=== PATIENT | female | born 1950 | race Caucasian/White ===

== ENCOUNTER 2025-01-05 14:01 | Emergency (ER) | payer OTHER, MEDICARE ==
--- OUTSIDE RECORDS SUMMARY | 2025-01-05 14:04 | XMS REPORT | Continuity of Care Document ---
Author Name Unknown Address [address] [facility] [place] [address] Organization [facility] [place] Address [address] [facility] [place] [address] Care Team Providers Care Coppersmith Helper Name Role Phone Hanny RIVAS, Ben Batista Primary Care Physician Yvette Thomas Attending Clinician Unavailable Payers Payer Name Policy Type Policy Number Effective Date Expira tion Date Source MEDICARE 1 [id number] [facility] [place] [facility] AARP Medicare Supplemental 53 [id number] [facility] Problems Condition Name Condition Details Condition Category Status Onset Date Resolution Date Last Treatment Date Treating Clinician Comments Source Essential hypertensi on Essential (primary) hypertensi on Problem [facility] Postmenopa usal osteoporos is Postmenopa usal osteoporos is Problem [facility] [id number] Moderate major depression Problem [facility] Gastroesop hageal reflux disease GERD without esophagiti s Problem [facility] Generalize d anxiety disorder JAYLEN (generaliz ed anxiety disorder) Problem [facility] [id number] Rheumatoid arthritis, involving unspecifie d site, unspecifie d whether rheumatoid factor present Problem [facility] Allergic rhinitis Non-season al allergic rhinitis, unspecifie d trigger Problem [facility] Herpes simplex otitis externa Recurrent cold sores Problem [facility] [id number] Mixed hyperlipid emia Problem [facility] [id number] Seropositi ve rheumatoid arthritis Problem [facility] Social History Social Habit Start Date Stop Date Quantity Comments Source Sex Assigned At [facility] History of Tobacco Use [facility] Smoking Status Start Date Stop Date Source Never Smoker [facility] Medications Ordered Medication Name Filled Medication Name Start Date Stop Date Current Medication? Ordering Clinician Indication Dosage Frequency Signature (SIG) Comments Components Source valacyclovi r 1 gram tablet 6- 00:00: 00 Yes 1gram Esteban Kebede Lisinopril 10 MG Lisinopril 10 MG -20 00:00: 00 No 1{table t} QD Lisinopril 10 MG bupropion HCl XL 300 mg 24 hr tablet, extended release - 00:00: 00 Yes mg Esteban Kebede lisinopril 10 mg tablet -19 00:00: 00 Yes mg Esteban Kebede buspirone 10 mg tablet 5-15 00:00: 00 Yes mg Esteban Kebede rosuvastati n 5 mg tablet 1-14 00:00: 00 Yes mg Esteban Kebede rifAMPin 300 MG rifAMPin 300 MG 2023-04 1-06 00:00: 00 No 2{capsu les} QD rifAMPin 300 MG valACYclovi r HCl 1 GM valACYclovi r HCl 1 GM 11-03 00:00: 00 No 1{table t} QD valACYclov ir HCl 1 GM Rosuvastati n Calcium 5 MG Rosuvastati n Calcium 5 MG -25 00:00: 00 No 1{table t} QD Rosuvastat in Calcium 5 MG Actemra 200 MG/10ML Actemra 200 MG/10ML No Actemra 200 MG/10ML ZyrTEC Allergy 10 MG ZyrTEC Allergy 10 MG No 1{table t} QD ZyrTEC Allergy 10 MG buPROPion HCl ER (XL) 300 MG buPROPion HCl ER (XL) 300 MG No QD buPROPion HCl ER (XL) 300 MG busPIRone HCl 10 MG busPIRone HCl 10 MG No 1{table t} BID busPIRone HCl 10 MG Pepcid 20 MG Pepcid 20 MG No 1{table t_at_be dtime_a s_neede d} QD Pepcid 20 MG Rosuvastati n Calcium 5 MG Rosuvastati n Calcium 5 MG No Rosuvastat in Calcium 5 MG ZyrTEC 10 MG ZyrTEC 10 MG No 1{table t} QD ZyrTEC 10 MG buPROPion HCl ER (XL) 300 MG buPROPion HCl ER (XL) 300 MG No buPROPion HCl ER (XL) 300 MG busPIRone HCl 10 MG busPIRone HCl 10 MG No busPIRone HCl 10 MG Pepcid 20 MG Pepcid 20 MG No 1{table t_at_be dtime_a s_neede d} QD Pepcid 20 MG valACYclovi r HCl 1 GM valACYclovi r HCl 1 GM No valACYclov ir HCl 1 GM Immunizations Ordered Immunization Name Filled Immunization Name Date Status Comments Source Fluad (IIV) - SDS - 0.5mL Fluad (IIV) - SDS - 0.5mL Unknown Completed [facility] Vital Signs Vital Name Observation Time Observation Value Comments S ource height 2024-09-26 11:30:00 66.5 [in_i] [facility] weight 2024-09-26 11:30:00 172.4 [lb_av] [facility] temperature 2024-09-26 11:30:00 97.7 [degF] Com [facility] bmi 2024-09-26 11:30:00 27.41 kg/m2 [facility] oximetry 2024-09-26 11:30:00 98 % [facility] blood pressure systolic 2024-09-26 11:30:00 117 mm[Hg] [facility] blood pressure diastolic 2024-09-26 11:30:00 68 mm[Hg] [facility] height 2024-08-29 10:45:00 66.5 [in_i] [facility] weight 2024-08-29 10:45:00 173.8 [lb_av] [facility] temperature 2024-08-29 10:45:00 98.2 [degF] Com [facility] bmi 2024-08-29 10:45:00 27.63 kg/m2 [facility] oximetry 2024-08-29 10:45:00 96 % [facility] blood pressure systolic 2024-08-29 10:45:00 152 mm[Hg] [facility] blood pressure diastolic 2024-08-29 10:45:00 84 mm[Hg] Common [facility] height 2024-06-09 10:00:00 66.5 [in_i] [facility] weight 2024-06-09 10:00:00 175 [lb_av] [facility] temperature 2024-06-09 10:00:00 97.4 [degF] Com [facility] bmi 2024-06-09 10:00:00 27.82 kg/m2 [facility] oximetry 2024-06-09 10:00:00 97 % [facility] respiratory rate 2024-06-09 10:00:00 16 /min Common [facility] blood pressure systolic 2024-06-09 10:00:00 134 mm[Hg] [facility] blood pressure diastolic 2024-06-09 10:00:00 72 mm[Hg] Common [facility] height 2024-03-21 10:20:00 66.5 [in_i] [facility] weight 2024-03-21 10:20:00 163 [lb_av] [facility] on [facility] bmi 2024-03-21 10:20:00 25.91 kg/m2 [facility] height 2024-02-07 11:00:00 66.5 [in_i] [facility] weight 2024-02-07 11:00:00 161 [lb_av] [facility] temperature 2024-02-07 11:00:00 97.2 [degF] Com [facility] bmi 2024-02-07 11:00:00 25.59 kg/m2 [facility] oximetry 2024-02-07 11:00:00 97 % [facility] respiratory rate 2024-02-07 11:00:00 16 /min Common [facility] blood pressure systolic 2024-02-07 11:00:00 138 mm[Hg] Common [facility] blood pressure diastolic 2024-02-07 11:00:00 82 mm[Hg] Common [facility] height 2024-02-07 11:00:00 66.5 [in_i] [facility] weight 2024-02-07 11:00:00 161 [lb_av] [facility] temperature 2024-02-07 11:00:00 97.2 [degF] Com [facility] bmi 2024-02-07 11:00:00 25.59 kg/m2 [facility] oximetry 2024-02-07 11:00:00 97 % [facility] respiratory rate 2024-02-07 11:00:00 16 /min Common [facility] blood pressure systolic 2024-02-07 11:00:00 138 mm[Hg] [facility] blood pressure diastolic 2024-02-07 11:00:00 82 mm[Hg] Common [facility] height 2023-11-04 08:20:00 66.5 [in_i] [facility] weight 2023-11-04 08:20:00 162.2 [lb_av] [facility] temperature 2023-11-04 08:20:00 97.2 [degF] Com [facility] bmi 2023-11-04 08:20:00 25.78 kg/m2 [facility] oximetry 2023-11-04 08:20:00 98 % [facility] respiratory rate 2023-11-04 08:20:00 16 /min Common [facility] blood pressure systolic 2023-11-04 08:20:00 132 mm[Hg] [facility] blood pressure diastolic 2023-11-04 08:20:00 78 mm[Hg] Common [facility] height 2023-11-04 08:20:00 66.5 [in_i] [facility] weight 2023-11-04 08:20:00 162.2 [lb_av] [facility] temperature 2023-11-04 08:20:00 97.2 [degF] Com mon [facility] bmi 2023-11-04 08:20:00 25.78 kg/m2 [facility] oximetry 2023-11-04 08:20:00 98 % [facility] respiratory rate 2023-11-04 08:20:00 16 /min Common [facility] blood pressure systolic 2023-11-04 08:20:00 132 mm[Hg] Common [facility] blood pressure diastolic 2023-11-04 08:20:00 78 mm[Hg] Common [facility] height 2023-11-04 08:20:00 66.5 [in_i] [facility] weight 2023-11-04 08:20:00 162.2 [lb_av] [facility] temperature 2023-11-04 08:20:00 97.2 [degF] Com mon [facility] bmi 2023-11-04 08:20:00 25.78 kg/m2 Comm [facility] oximetry 2023-11-04 08:20:00 98 % [facility] respiratory rate 2023-11-04 08:20:00 16 /min Common [facility] blood pressure systolic 2023-11-04 08:20:00 132 mm[Hg] [facility] blood pressure diastolic 2023-11-04 08:20:00 78 mm[Hg] [facility] height 2023-10-07 10:20:00 66.5 [in_i] [facility] weight 2023-10-07 10:20:00 164.2 [lb_av] [facility] temperature 2023-10-07 10:20:00 97.2 [degF] Com [facility] bmi 2023-10-07 10:20:00 26.1 kg/m2 [facility] oximetry 2023-10-07 10:20:00 97 % [facility] respiratory rate 2023-10-07 10:20:00 16 /min [facility] blood pressure systolic 2023-10-07 10:20:00 144 mm[Hg] Common [facility] blood pressure diastolic 2023-10-07 10:20:00 80 mm[Hg] [facility] Respiratory Rate 2024-09-11 14:58:00 Esteban Kebede BP Systolic 2024-09-11 14:58:00 144 mm[Hg] Dhruv Kebede BP Diastolic 2024-09-11 14:58:00 88 mm[Hg] Luiz Kebede Weight Measured 2024-09-11 14:58:00 173.80 pounds Esteban Kebede Height Measured 2024-09-11 14:58:00 67.00 inches Esteban Kebede Body Temperature 2024-09-11 14:58:00 98.10 degrees Esteban Kebede Heart Rate 2024-09-11 14:58:00 70.00 /min Kacy Kebede Encounters Start Date/Time End Date/Time Encounter Type Admission Type Attending [facility] Care Facility Care Department Encounter ID Source 2024-05-10 00:14:00 Outpatient Yvette Thomas CLS CLS [id number] Bethany millard 2024-02-03 09:27:01 Outpatient Yvette Thomas STLMLC STLMLC [id number] [facility] 2023-10-07 10:04:01 Outpatient Yvette Thomas STLMLC STLMLC [id number] [facility] 2024-09-26 00:00:00 2024-09-26 00:00:00 OFFICE VISIT ESTAB PT LEVEL 3 STLMLC STLMLC [id number] [facility] 2024-09-11 14:51:58 2024-09-11 14:51:58 Outpatient SFA SFA [id number] Esteban Kebede 2024-09-11 00:00:00 2024-09-11 00:00:00 Outpatient Visit SFA [id number] Esteban Kebede 2024-08-29 00:00:00 2024-08-29 00:00:00 OFFICE VISIT ESTAB PT LEVEL 3 STLMLC STLMLC [id number] [facility] 2024-06-22 00:00:00 2024-06-22 00:00:00 Office Visit- Est Pt.- Level 4 CLS CLS [id number] Bethany millard 2024-06-16 00:00:00 2024-06-16 00:00:00 (TEL) CLS CLS [id number] Bethany millard 2024-06-09 00:00:00 2024-06-09 00:00:00 OFFICE VISIT ESTAB PT LEVEL 4 STLMLC STLMLC [id number] [facility] 2024-03-21 00:00:00 2024-03-21 00:00:00 OFFICE VISIT ESTAB PT LEVEL 4 STLMLC STLMLC [id number] [facility] 2024-03-21 00:00:00 2024-03-21 00:00:00 (TEL) STLMLC STLMLC [id number] [facility] 2024-03-20 00:00:00 2024-03-20 00:00:00 (TEL) STLMLC STLMLC [id number] [facility] 2024-02-18 00:00:00 2024-02-18 00:00:00 (TEL) STLMLC STLMLC [id number] [facility] 2024-02-15 00:00:00 2024-02-15 00:00:00 (TEL) STLMLC STLMLC [id number] [facility] 2024-02-07 00:00:00 2024-02-07 00:00:00 OFFICE VISIT ESTAB PT LEVEL 4 STLMLC STLMLC [id number] [facility] 2023-11-11 00:00:00 2023-11-11 00:00:00 (TEL) STLMLC STLMLC [id number] [facility] 2023-11-11 00:00:00 2023-11-11 00:00:00 (TEL) STLMLC STLMLC [id number] [facility] 2023-11-04 00:00:00 2023-11-04 00:00:00 SUB ANNUAL [facility] VISIT STLMLC STLMLC [id number] [facility] 2023-11-04 00:00:00 2023-11-04 00:00:00 OFFICE VISIT ESTAB PT LEVEL 4 STLMLC STLMLC [id number] [facility] 2023-10-07 00:00:00 2023-10-07 00:00:00 OFFICE VISIT NEW PT LEVEL 4 STLMLC STLMLC [id number] [facility] Results Test Description Test Time Test Comments Results Result Co mments Source COMPREHENSIVE METABOLIC [id number] 00:00:00* Test Item Value Reference Range Interpretation Comme nts NUCLEATED RBCS (test code = 81437-2) 0.0 /100 WBC'S See_Comment [Automated message] The system which generated this result transmitted reference range: 0.0 /100 WBC'S. The reference range was not used to interpret this result as normal/abnormal. ABSOLUTE EOSINOPHILS (test code = 64023-7) 0.49 K/UL See_Comment [Automated message] The system which generated this result transmitted reference range: 0.00-0.50 K/UL. The reference range was not used to interpret this result as normal/abnormal. ABSOLUTE LYMPHOCYTES (test code = 28224-0) 2.21 K/UL See_Comment [Automated message] The system which generated this result transmitted reference range: 1.00-4.00 K/UL. The reference range was not used to interpret this result as normal/abnormal. ABSOLUTE MONOCYTES (test code = 31449-9) 0.55 K/UL See_Comment [Automated message] The system which generated this result transmitted reference range: 0.20-1.00 K/UL. The reference range was not used to interpret this result as normal/abnormal. ABSOLUTE NEUTROPHILS (test code = 92070-1) 4.85 K/UL See_Comment [Automated message] The system which generated this result transmitted reference range: 1.50-7.50 K/UL. The reference range was not used to interpret this result as normal/abnormal. BASOPHILS (test code = 16785-6) 0.5 % EOSINOPHILS (test code = 40967-9) 6.0 % HEMATOCRIT (test code = 49163-3) 42.5 % See_Comment [Automated messa ge] The system which generated this result transmitted reference range: 34.0-45.0 %. The reference range was not used to interpret this result as normal/abnormal. HEMOGLOBIN (test code = 718-7) 14.1 G/DL See_Comment [Automated messa ge] The system which generated this result transmitted reference range: 11.5-15.5 G/DL. The reference range was not used to interpret this result as normal/abnormal. LYMPHOCYTES (test code = 69264-2) 27.1 % MCH (test code = 38793-4) 28.5 PG See_Comment [Automated messa ge] The system which generated this result transmitted reference range: 25.0-33.0 PG. The reference range was not used to interpret this result as normal/abnormal. MCHC (test code = 46522-1) 33.2 G/DL See_Comment [Automated [employer] ge] The system which generated this result transmitted reference range: 31.0-36.0 G/DL. The reference range was not used to interpret this result as normal/abnormal. MCV (test code = 98929-4) 85.9 fL See_Comment [Automated [employer] ge] The system which generated this result transmitted reference range: 80.0-99.0 fL. The reference range was not used to interpret this result as normal/abnormal. MONOCYTES (test code = 01498-6) 6.7 % NEUTROPHILS (test code = 87239-0) 59.3 % PLATELET COUNT (test code = 46669-3) 384 K/UL See_Comment [Automated [employer] ge] The system which generated this result transmitted reference range: 130-400 K/UL. The reference range was not used to interpret this result as normal/abnormal. RBC (test code = 87831-9) 4.95 M/UL See_Comment [Automated [employer] ge] The system which generated this result transmitted reference range: 3.80-5.40 M/UL. The reference range was not used to interpret this result as normal/abnormal. RDW (test code = 07886-1) 11.9 % See_Comment [Automated [employer] ge] The system which generated this result transmitted reference range: 11.5-15.0 %. The reference range was not used to interpret this result as normal/abnormal. WBC (test code = 46972-9) 8.2 K/UL See_Comment [Automated [employer] ge] The system which generated this result transmitted reference range: 3.5-11.0 K/UL. The reference range was not used to interpret this result as normal/abnormal. VITAMIN D, 25 OH (test code = 1988-3) 46 NG/ML SEE BELOW NG/ML CALC LDL CHOL (test code = 56568-6) 107 MG/DL See_Comment H [Automated [employer] ge] The system which generated this result transmitted reference range: <100 MG/DL. The reference range was not used to interpret this result as normal/abnormal. CHOLESTEROL (test code = 2093-3) 194 MG/DL See_Comment [Automated messa ge] The system which generated this result transmitted reference range: <200 MG/DL. The reference range was not used to interpret this result as normal/abnormal. HDL CHOLESTEROL (test code = 2085-9) 68 MG/DL See_Comment [Automated [employer] ge] The system which generated this result transmitted reference range: >39 MG/DL. The reference range was not used to interpret this result as normal/abnormal. RISK RATIO LDL/HDL (test code = 90380-1) 1.57 RATIO See_Comment [Automated message] The system which generated this result transmitted reference range: <3.22 RATIO. The reference range was not used to interpret this result as normal/abnormal. TRIGLYCERIDES (test code = 2571-8) 98 MG/DL See_Comment [Automated [employer] ge] The system which generated this result transmitted reference range: <150 MG/DL. The reference range was not used to interpret this result as normal/abnormal. ALBUMIN (test code = 1751-7) 4.3 G/DL See_Comment [Automated [employer] ge] The system which generated this result transmitted reference range: 3.5-5.2 G/DL. The reference range was not used to interpret this result as normal/abnormal. ALKALINE PHOSPHATASE (test code = 6768-6) 106 U/L See_Comment [Automated message] The system which generated this result transmitted reference range: 40-142 U/L. The reference range was not used to interpret this result as normal/abnormal. BILIRUBIN, TOTAL (test code = 1975-2) 0.4 MG/DL See_Comment [Automated [employer] ge] The system which generated this result transmitted reference range: <=1.2 MG/DL. The reference range was not used to interpret this result as normal/abnormal. BUN (test code = 3094-0) 15 MG/DL See_Comment [Automated [employer] ge] The system which generated this result transmitted reference range: 8-23 MG/DL. The reference range was not used to interpret this result as normal/abnormal. CALCIUM (test code = 57407-5) 9.8 MG/DL See_Comment [Automated [employer] ge] The system which generated this result transmitted reference range: 8.5-10.5 MG/DL. The reference range was not used to interpret this result as normal/abnormal. CALC A/G RATIO (test code = 1759-0) 1.5 RATIO See_Comment [Automated messa ge] The system which generated this result transmitted reference range: 1.0-2.6 RATIO. The reference range was not used to interpret this result as normal/abnormal. CALC BUN/CREAT (test code = 3097-3) 15 RATIO See_Comment [Automated messa ge] The system which generated this result transmitted reference range: 6-28 RATIO. The reference range was not used to interpret this result as normal/abnormal. CALC GLOBULIN (test code = 56420-6) 2.9 G/DL See_Comment [Automated messa ge] The system which generated this result transmitted reference range: 1.9-3.7 G/DL. The reference range was not used to interpret this result as normal/abnormal. CARBON DIOXIDE (test code = 1963-8) 25 MEQ/L See_Comment [Automated messa ge] The system which generated this result transmitted reference range: 19-31 MEQ/L. The reference range was not used to interpret this result as normal/abnormal. CHLORIDE (test code = 2075-0) 101 MEQ/L See_Comment [Automated messa ge] The system which generated this result transmitted reference range: 95-107 MEQ/L. The reference range was not used to interpret this result as normal/abnormal. CREATININE (test code = 2160-0) 0.97 MG/DL See_Comment [Automated messa ge] The system which generated this result transmitted reference range: 0.60-1.30 MG/DL. The reference range was not used to interpret this result as normal/abnormal. eGFR (2020 CKD-EPI) (test code = 43560-4) 62 ML/MIN/1.73 See_Comment [Automated message] The system which generated this result transmitted reference range: >60 ML/MIN/1.73. The reference range was not used to interpret this result as normal/abnormal. GLUCOSE (test code = 1558-6) 84 MG/DL See_Comment [Automated messa ge] The system which generated this result transmitted reference range: 70-99 MG/DL. The reference range was not used to interpret this result as normal/abnormal. POTASSIUM (test code = 2823-3) 4.6 MEQ/L See_Comment [Automated messa ge] The system which generated this result transmitted reference range: 3.5-5.4 MEQ/L. The reference range was not used to interpret this result as normal/abnormal. PROTEIN, TOTAL (test code = 2885-2) 7.2 G/DL See_Comment [Automated messa ge] The system which generated this result transmitted reference range: 6.1-8.3 G/DL. The reference range was not used to interpret this result as normal/abnormal. AST (test code = 1920-8) 18 U/L See_Comment [Automated messa ge] The system which generated this result transmitted reference range: 9-40 U/L. The reference range was not used to interpret this result as normal/abnormal. ALT (test code = 1742-6) 15 U/L See_Comment [Automated messa ge] The system which generated this result transmitted reference range: 5-40 U/L. The reference range was not used to interpret this result as normal/abnormal. SODIUM (test code = 2951-2) 140 MEQ/L See_Comment [Automated messa ge] The system which generated this result transmitted reference range: 133-146 MEQ/L. The reference range was not used to interpret this result as normal/abnormal. CBC W/AUTO [id number] 00:00:00* Test Item Value Reference Range Interpretation Comme nts NUCLEATED RBCS (test code = 21973-2) 0.0 /100 WBC'S See_Comment [Automated messa ge] The system which generated this result transmitted reference range: 0.0 /100 WBC'S. The reference range was not used to interpret this result as normal/abnormal. ABSOLUTE EOSINOPHILS (test code = 00187-6) 0.44 K/UL See_Comment [Automated messa ge] The system which generated this result transmitted reference range: 0.00-0.50 K/UL. The reference range was not used to interpret this result as normal/abnormal. ABSOLUTE LYMPHOCYTES (test code = 10985-5) 2.13 K/UL See_Comment [Automated messa ge] The system which generated this result transmitted reference range: 1.00-4.00 K/UL. The reference range was not used to interpret this result as normal/abnormal. ABSOLUTE MONOCYTES (test code = 24568-6) 0.61 K/UL See_Comment [Automated messa ge] The system which generated this result transmitted reference range: 0.20-1.00 K/UL. The reference range was not used to interpret this result as normal/abnormal. ABSOLUTE NEUTROPHILS (test code = 85392-5) 3.37 K/UL See_Comment [Automated messa ge] The system which generated this result transmitted reference range: 1.50-7.50 K/UL. The reference range was not used to interpret this result as normal/abnormal. BASOPHILS (test code = 53092-6) 0.6 % EOSINOPHILS (test code = 21172-3) 6.7 % HEMATOCRIT (test code = 92739-0) 39.2 % See_Comment [Automated messa ge] The system which generated this result transmitted reference range: 34.0-45.0 %. The reference range was not used to interpret this result as normal/abnormal. HEMOGLOBIN (test code = 718-7) 12.9 G/DL See_Comment [Automated messa ge] The system which generated this result transmitted reference range: 11.5-15.5 G/DL. The reference range was not used to interpret this result as normal/abnormal. LYMPHOCYTES (test code = 15615-4) 32.2 % MCH (test code = 10038-4) 28.6 PG See_Comment [Automated messa ge] The system which generated this result transmitted reference range: 25.0-33.0 PG. The reference range was not used to interpret this result as normal/abnormal. MCHC (test code = 05432-3) 32.9 G/DL See_Comment [Automated messa ge] The system which generated this result transmitted reference range: 31.0-36.0 G/DL. The reference range was not used to interpret this result as normal/abnormal. MCV (test code = 73719-0) 86.9 fL See_Comment [Automated messa ge] The system which generated this result transmitted reference range: 80.0-99.0 fL. The reference range was not used to interpret this result as normal/abnormal. MONOCYTES (test code = 40756-1) 9.2 % NEUTROPHILS (test code = 88286-7) 51.0 % PLATELET COUNT (test code = 63214-2) 330 K/UL See_Comment [Automated messa ge] The system which generated this result transmitted reference range: 130-400 K/UL. The reference range was not used to interpret this result as normal/abnormal. RBC (test code = 85043-0) 4.51 M/UL See_Comment [Automated messa ge] The system which generated this result transmitted reference range: 3.80-5.40 M/UL. The reference range was not used to interpret this result as normal/abnormal. RDW (test code = 47277-0) 13.3 % See_Comment [Automated [employer] ge] The system which generated this result transmitted reference range: 11.5-15.0 %. The reference range was not used to interpret this result as normal/abnormal. WBC (test code = 56552-8) 6.6 K/UL See_Comment [Automated messa ge] The system which generated this result transmitted reference range: 3.5-11.0 K/UL. The reference range was not used to interpret this result as normal/abnormal. DEXA, BONE DENSITY AXIAL SKELEDEXA, BONE DENSITY AXIAL [id number] SCR JAJA BILAT W/CAD3D SCR JAJA BILAT W/CAD Notes Date/Time Note Provider Source Esteban Kebede [facility]
--- NOTE | 2025-01-05 15:29 | RAD REPORT ---
Exam:Foot Left 3 View CLINICAL HISTORY: Left foot pain FINDINGS: Moderately displaced intra-articular fracture involves the base of the fifth proximal phalanx. No dislocation seen
--- NOTE | 2025-01-05 15:39 | EDPHYS ---
Physician Documentation [facility] Name: Marianne Villafana Age: 74 yrs Sex: Female : 1950 Arrival Date: 01/05/2025 Time: 14:01 Bed 11 Private MD: [facility] Physician James Pelaez HPI: 01/05 16:45 This 74 yrs old Female presents to ER via Wheelchair with complaints of Foot Injury. sb4 16:45 Patient states that she went skydiving yesterday, upon her descent to the ground, she sb4 did not set her feet accurately and landed awkwardly. She is complaining of pain in her left lateral foot. Is able to bear weight, just with pain. Has noticed a lot of swelling as well. Has been elevating and icing it, just was to make sure nothing is broken. Denies any other injuries. No numbness or tingling. Historical: - Allergies: 14:21 No Known Allergies; db - PMHx: 14:21 Hypertensive disorder; Hypercholesterolemia; Rheumatoid arthritis; TUBES TIED; db - Immunization history:: Adult Immunizations unknown. - Infectious Disease History:: Denies. - Social history:: Smoking status: Patient denies any tobacco usage or history of. ROS: 16:45 Constitutional: Negative for fever, chills, and weight loss, sb4 16:45 MS/extremity: Positive for injury or acute deformity, pain, swelling, tenderness, of the left foot, 16:45 All other systems are negative, Exam: 16:45 Constitutional: This is a well developed, well nourished patient who is awake, alert, sb4 and in no acute distress. Head/Face: Normocephalic, atraumatic. Eyes: Extra-ocular motions intact. Periorbital areas with no swelling, redness, or edema. ENT: Mucous membranes moist. Respiratory: No increased work of breathing, no retractions or nasal flaring. Skin: Warm, dry with normal turgor. Normal color with no rashes, no lesions, and no evidence of cellulitis. 16:45 Musculoskeletal/extremity: Swelling noted to dorsum of left foot. Pedal pulses intact, good cap refill, sensation intact. Full ROM of all toes and ankle. Vital Signs: 14:19 BP 118 / 97; Pulse 89; Resp 16; Temp 97.6; Pulse Ox 95% ; Weight 77.11 kg; Height 5 ft. db 7 in. ; Pain 6/10; 14:19 Body Mass Index 26.63 (77.11 kg, 170.18 cm) db 14:19 Pain Scale: Adult db MDM: 14:18 Medical Screening Exam initiated sb4 16:45 Differential diagnosis: closed fracture, contusion. Data reviewed: vital signs, nurses sb4 notes, radiologic studies, and as a result, I will discharge patient. External Records Reviewed: [facility] aware checked, last scheduled drug prescription-11/08/2024 7-day supply of tramadol. Care significantly affected by the following chronic conditions: Hypertension. Counseling: I had a detailed discussion with the patient and/or guardian regarding the historical points, exam findings, and any diagnostic results supporting the discharge/admit diagnosis, radiology results, the need for outpatient follow up, a senior boiler operator, to return to the emergency department if symptoms worsen or persist or if there are any questions or concerns that arise at home. 01/05 14:20 Order name: Foot Left 3 View XRAY; Complete Time: 15:32 sb4 01/05 15:38 Order name: Walking boot; Complete Time: 16:20 sb4 Administered Medications: 15:40 Drug: HYDROcodone-acetaminophen PO 5 mg-325 mg 1 tabs PO once Route: PO; rg5 16:20 Follow up: Response: No adverse reaction; Pain is decreased rg5 Disposition Summary: 01/05/25 15:38 Discharge Ordered Notes: Location: Home sb4 Problem: new sb4 Symptoms: have improved sb4 Condition: Stable sb4 Diagnosis - Nondisplaced fracture of proximal phalanx of left lesser toe(s) sb4 Followup: sb4 - With: Emmett Holcomb DPM - When: As needed - Reason: Recheck today's complaints, Re-evaluation by your physician Discharge Instructions: - Discharge Summary Sheet sb4 - Toe Fracture, [id number] sb4 Forms: - Patient Portal Instructions sb4 - Leadership Thank You Letter sb4 Prescriptions: - meloxicam 7.5 mg Oral tablet - take 1 tablet ORAL route daily; 14 tablet; Refills: 0, Product Selection sb4 Permitted - Tramadol 50 mg Oral Tablet - take 1 tablet ORAL route every 8 hours as needed; 12 tablet; Refills: 0, sb4 Product Selection Permitted Signatures: Dispatcher [employer] Sonia uY, RN RN db Faye Degroot PA-C PAChanell sb4 Ramon Herrera, RN RN rg5
--- NOTE | 2025-01-05 15:39 | ER ---
Nurse's Notes [facility] Name: Marianne Villafana Age: 74 yrs Sex: Female : 1950 Arrival Date: 01/05/2025 Time: 14:01 Bed 11 Private MD: Diagnosis: Nondisplaced fracture of proximal phalanx of left lesser toe(s) Presentation: 01/05 14:19 Chief complaint: Patient states: LEFT FOOT PAIN. STATES YESTERDAY WENT [employer] DIVING AND db LANDED WRONG. DENIES ANKLE PAIN. Coronavirus screen: Client denies travel out of the [place] in the last 14 days. At this time, the client does not indicate any symptoms associated with coronavirus-19. Ebola Screen: Patient negative for fever greater than or equal to 101.5 degrees Fahrenheit, and additional compatible Ebola Virus Disease symptoms Patient denies exposure to infectious person. Patient denies travel to an Ebola-affected area in the 21 days before illness onset. No symptoms or risks identified at this time. Initial Sepsis Screen: Does the patient meet any 2 criteria? No. Patient's initial sepsis screen is negative. Does the patient have a suspected source of infection? No. Patient's initial sepsis screen is negative. Risk Assessment: Do you want to hurt yourself or someone else? Patient reports no desire to harm self or others. Onset of symptoms was January 05, 2025. 14:19 Method Of Arrival: Wheelchair db 14:19 Acuity: MOLINA 4 db Triage Assessment: 14:21 General: Appears in no apparent distress. uncomfortable, Behavior is calm, cooperative. db Pain: Complains of pain in left foot. Neuro: Level of Consciousness is awake, alert, obeys commands, Oriented to person, place, time, situation. Respiratory: Airway is patent Respiratory effort is even, unlabored. Musculoskeletal:. Injury Description: Bruise sustained to left foot. Historical: - Allergies: 14:21 No Known Allergies; db - PMHx: 14:21 Hypertensive disorder; Hypercholesterolemia; Rheumatoid arthritis; TUBES TIED; db - Immunization history:: Adult Immunizations unknown. - Infectious Disease History:: Denies. - Social history:: Smoking status: Patient denies any tobacco usage or history of. Vital Signs: 14:19 BP 118 / 97; Pulse 89; Resp 16; Temp 97.6; Pulse Ox 95% ; Weight 77.11 kg; Height 5 ft. db 7 in. ; Pain 6/10; 14:19 Body Mass Index 26.63 (77.11 kg, 170.18 cm) db 14:19 Pain Scale: Adult db ED Course: 14:06 Patient arrived in ED. al6 14:17 Faye Degroot [facility]C [facility] sb4 14:17 James Pelaez MD is Attending Physician. sb4 14:21 Triage completed. db 14:21 Arm band placed on left wrist. db 14:45 Ramon Herrera, RN is Primary Nurse. rg5 14:54 Foot Left 3 View XRAY In Process Unspecified. EDMS 15:38 Emmett Holcomb DPM is Referral Physician. sb4 Administered Medications: 15:40 Drug: HYDROcodone-acetaminophen PO 5 mg-325 mg 1 tabs PO once Route: PO; rg5 16:20 Follow up: Response: No adverse reaction; Pain is decreased rg5 Outcome: 15:38 Discharge ordered by . sb4 16:20 Patient left the ED. rg5 Signatures: Dispatcher [employer] EDMS Sonia Jimenez, RN RN Faye Chowdary PA-C PA-C sb4 Ramon Herrera, RN RN rg5 Aimee Guerra al6
[2025-01-05] MEDS ORDERED: HYDROCODONE/APAP 5/325 MG TAB ONE (15:40)
[2025-01-05 17:09] VITALS: BP 118/97; TEMP 97.6; O2SAT 95
== END 2025-01-05 16:20 | disposition home or self-care (01) ==
LOC: ER 14:01
DX: S92.515A Nondisplaced fracture of proximal phalanx of left lesser toe(s), initial encounter for closed fracture (principal)
CPT/HCPCS: 99282